=== PATIENT | female | born 1995 | race Caucasian/White ===

== ENCOUNTER 2016-12-06 10:18 | Inpatient (IN) | payer MEDICAID ==
[~2016-12-06] VITALS: Ht 162.6 cm; Wt 79.4 kg
[2016-12-06] MEDS ORDERED: PNV1TABL76 PO (10:33)
[2016-12-06] MEDS ORDERED: LACTATED RINGERS 1,000 ML IV SCH ×2 (12:11→12:15)
[2016-12-06] MEDS ORDERED: DEXT 5%/LR + PITOCIN 20UNITS/L 1,000 ML IV SCH ×2 (12:11→14:05)
[2016-12-06] MEDS ORDERED: NALOXONE HCL 0.4 MG/ML 1ML VIAL IM PRN (12:15)
[2016-12-06] MEDS ORDERED: LIDOCAINE HCL 1% 20ML VIAL (Pyxis) INJ INFIL PRN (12:15)
[2016-12-06] MEDS ORDERED: BUTORPHANOL TARTRATE 2 MG/ML VIAL IV PRN (12:15)
[2016-12-06] MEDS ORDERED: METHYLERGONOVINE MALEATE 0.2 MG/ML IM PRN (12:15)
[2016-12-06] MEDS ORDERED: MISOPROSTOL 200MCG TABLET VG SCH (12:30)
[2016-12-06 12:55] LABS: EOSINOPHILS % 0.1 % (0.0-5.0); HEMATOCRIT. 36.7 % (36.0-48.0); HEMOGLOBIN. 12.1 g/dL (12.0-16.0); LYMPHOCYTES % 9.5 % (20.0-50.0); MEAN CORPUSCULAR HEMOGLOBIN 26.9 pg (28.0-32.0); MEAN CORPUSCULAR VOLUME 81.7 fL (81.0-99.0); MEAN PLATELET VOLUME 7.6 fl (7.4-10.4); MONOCYTES % 2.8 % (2.0-8.0); NEUTROPHILS % 87.6 % (40.0-76.0); PLATELET 289 x1000/uL (130-400); RED CELL DISTRIBUTION WIDTH 15.2 % (11.6-14.6)
[2016-12-06 13:04] LABS: INR 0.9; PARTIAL THROMBOPLASTIN TIME 28.5 sec (23.4-31.0); PROTHROMBIN TIME 9.8 sec (9.4-11.6)
[2016-12-06 14:03] LABS: HEPATITIS B SURFACE ANTIGEN NEGATIVE; RUBELLA IGG 39.1 IU/mL (4.99-10)
[2016-12-06] MEDS ORDERED: BENZOCAINE/LANOLIN/ALOE VERA SPRAY TOP PRN (14:15)
[2016-12-06] MEDS ORDERED: IBUPROFEN 800MG TABLET PO PRN (14:15)
[2016-12-06] MEDS ORDERED: IBUPROFEN 400MG TABLET PO PRN (14:15)
[2016-12-06] MEDS ORDERED: BISACODYL 10MG SUPP PR PRN (14:15)
[2016-12-06] MEDS ORDERED: GLYCERIN/WITCH HAZEL LEAF MEDICATED PAD TOP PRN (14:15)
[2016-12-06] MEDS: ACETAMINOPHEN WITH CODEINE 300/30MG TABLET PO PRN ×2 (14:41→19:31)
[2016-12-06 16:00] VITALS: BP 110/70
[2016-12-06 16:17] LABS: CLARITY URINE CLEAR (CLEAR); COLOR URINE YELLOW (YELLOW); GLUCOSE URINE 3+ (NEGATIVE); KETONES URINE 3+ (NEGATIVE); LEUKOCYTE ESTERASE URINE NEGATIVE (NEGATIVE); NITRITE URINE NEGATIVE (NEGATIVE); OCCULT BLOOD URINE NEGATIVE (NEGATIVE); PROTEIN URINE NEGATIVE (NEGATIVE); SPECIFIC GRAVITY URINE 1.022 (1.005-1.030); UROBILINOGEN URINE 0.2 E.U./dL (0.2-1.0)
[2016-12-06 16:30] VITALS: BP 109/69
[2016-12-06 16:33] LABS: *AMPHETAMINES SCREEN URINE NEGATIVE (NEGATIVE); *BARBITURATES SCREEN URINE NEGATIVE (NEGATIVE); *BENZODIAZEPINES SCREEN URINE NEGATIVE (NEGATIVE); *COCAINE SCREEN URINE NEGATIVE (NEGATIVE); CANNABINOID URINE SCREEN NEGATIVE (NEGATIVE); METHADONE URINE SCREEN NEGATIVE (NEGATIVE); OPIATES URINE SCREEN NEGATIVE (NEGATIVE); PHENCYCLIDINE URINE SCREEN NEGATIVE (NEGATIVE)
[2016-12-06 16:45] VITALS: BP 109/61
[2016-12-06 16:58] VITALS: BP 110/70
[2016-12-06 19:15] VITALS: BP 104/53
[2016-12-06] MEDS: DOCUSATE SODIUM 100MG CAPSULE PO SCH (20:51)
[2016-12-06] MEDS: SIMETHICONE 80MG TABLET CHEW PO SCH (20:51)
[2016-12-06 23:24] VITALS: BP 92/44
[2016-12-07 06:57] LABS: BASOPHILS % 0.2 % (0.0-2.0); EOSINOPHILS % 0.6 % (0.0-5.0); HEMATOCRIT. 33.1 % (36.0-48.0); HEMOGLOBIN. 10.7 g/dL (12.0-16.0); LYMPHOCYTES % 24.8 % (20.0-50.0); MEAN CORPUSCULAR HEMOGLOBIN 26.7 pg (28.0-32.0); MEAN CORPUSCULAR VOLUME 82.6 fL (81.0-99.0); MEAN PLATELET VOLUME 7.6 fl (7.4-10.4); NEUTROPHILS % 69.4 % (40.0-76.0); PLATELET 285 x1000/uL (130-400); RED CELL DISTRIBUTION WIDTH 15.4 % (11.6-14.6)
[2016-12-07 07:51] VITALS: BP 91/42
[2016-12-07] MEDS: PRENATAL VIT/FE FUMARATE/FA TABLET PO SCH (08:53)
[2016-12-07] MEDS: DOCUSATE SODIUM 100MG CAPSULE PO SCH ×2 (08:54→20:36)
[2016-12-07] MEDS: ACETAMINOPHEN WITH CODEINE 300/30MG TABLET PO PRN ×2 (08:55→18:01)
[2016-12-07] MEDS: SIMETHICONE 80MG TABLET CHEW PO SCH ×5 (08:56→20:38)
[2016-12-07] MEDS: FERROUS SULFATE 325MG TABLET PO SCH ×2 (13:00→18:00)
[2016-12-07 17:39] VITALS: BP 86/45
[2016-12-08] MEDS: FERROUS SULFATE 325MG TABLET PO SCH (08:13)
[2016-12-08] MEDS: ACETAMINOPHEN WITH CODEINE 300/30MG TABLET PO PRN (08:14)
[2016-12-08] MEDS: SIMETHICONE 80MG TABLET CHEW PO SCH (08:14)
[2016-12-08] MEDS: PRENATAL VIT/FE FUMARATE/FA TABLET PO SCH (08:14)
[2016-12-08 08:39] VITALS: BP 92/42
[2016-12-08 08:48] VITALS: BP 92/42
== END 2016-12-08 11:40 | disposition home or self-care (01) | DRG 560 ==
LOC: OBSVTOIN 10:18 → L&D 10:18 → 7EST PP/OB 15:27
PROVIDERS: ADMIT Obstetrics & Gynecology; ATTEND Obstetrics & Gynecology
PROC: 10D07Z6 Extraction of Products of Conception, Vacuum, Via Natural or Artificial Opening (ICD-10-PCS; principal; 2016-12-06 13:21)
DX: O80 Encounter for full-term uncomplicated delivery (principal); Z37.0 Single live birth; Z3A.39 39 weeks gestation of pregnancy
CPT/HCPCS: 36415; 80305; 81001; 85025; 85610; 85730; 86592; 86703; 86762; 86850; 86900; 87340; J2590; J7120